=== PATIENT | female | born 1940 | race Caucasian/White ===

== ENCOUNTER → 2017-11-26 | Outpatient (CLI) | payer OTHER, BC | LOC: BHLMT 13:15 | PROVIDERS: ATTEND Internal Medicine Interventional Cardiology | DX: R55 Syncope and collapse (principal); I10 Essential (primary) hypertension | CPT/HCPCS: 93880-PO ==

== ENCOUNTER → 2017-12-01 | Outpatient (CLI) | payer OTHER, BC | LOC: BHLMT 13:30 | PROVIDERS: ATTEND Internal Medicine Cardiovascular Disease | DX: R55 Syncope and collapse (principal); I10 Essential (primary) hypertension; E78.2 Mixed hyperlipidemia | CPT/HCPCS: 93005-PO ==

== ENCOUNTER → 2018-01-21 | Outpatient (CLI) | payer OTHER, BC | LOC: BHLMT 11:30 | PROVIDERS: ATTEND Internal Medicine Interventional Cardiology | DX: R55 Syncope and collapse (principal); I10 Essential (primary) hypertension | CPT/HCPCS: 93017-PO; 93350-PO ==

== ENCOUNTER → 2018-02-03 | Outpatient (CLI) | payer OTHER, BC ==
[~2018-02-03] MED LIST: IOPAMIDOL (ISOVUE-370) 150 ML BTL IV ONE
== END ==
LOC: FIMAGING 09:34
PROVIDERS: ATTEND Internal Medicine Cardiovascular Disease
DX: I25.10 Atherosclerotic heart disease of native coronary artery without angina pectoris (principal)
CPT/HCPCS: 75574; Q9967

== ENCOUNTER → 2018-02-17 | Day surgery (SDC) | payer OTHER, BC ==
[~2018-02-17] MED LIST changes: +ASPIRIN EC 325 MG TAB PO ONE; +ATROPINE SULFATE 1 MG/10 ML SYR IVP PRN; +DIAZEPAM 5 MG TAB PO ONE; +FAMOTIDINE 20 MG TAB PO ONE; +HEPARIN 10,000 UNIT/10 ML MDV (1,000 UNIT/ML) ONE; +HYDROCODONE/APAP 5/325 TAB PO PRN; +LIDOCAINE 1% 300 MG/30 ML SDV ONE; +MIDAZOLAM 2 MG/2 ML VIAL ONE; +NITROGLYCERIN 0.4 MG BTL SL PRN; +NS 1,000 ML IV ONE; +OXYCODONE/APAP 5/325 TAB PO PRN; +VERAPAMIL 5 MG/2 ML VIAL ONE; +diphenhydrAMINE 25 MG CAP PO ONE; +fentaNYL 100 MCG/2 ML INJ ONE
--- NOTE | 2018-02-17 09:55 | CPEKG ---
Heart Rate: 81 RR Interval: 741 P-R Interval: 172 QRSD Interval: 82 QT Interval: 376 QTC Interval: 437 P [place]: 66 QRS [place]: 54 T Wave [place]: 14 EKG Severity - NORMAL ECG - EKG Impression: SINUS RHYTHM Preliminary Awaiting MD Review
[2018-02-17 10:16] LABS: PLATELET COUNT 296 10^3/uL (150-400)
[2018-02-17 10:25] LABS: INR 0.97 (0.83-1.16); PROTIME(PATIENT) 13.1 SEC (12.0-15.0)
--- NOTE | 2018-02-17 10:37 | PDPROPOC ---
Sedation Plan of Care Sedation Plan of Care: vital signs stable, mental status noted, patient educated of risks, benefits, alternatives, patient can tolerate sedation ASA Classification: ASA 1 Planned drugs: fentanyl, midazolam Mallampati Score: Class 1 Mallampati Reference Image: Patient passed 3-3-2 rule?: Yes
--- NOTE | 2018-02-17 10:37 | PDHPUP ---
History & Physical Update H&P update statement: This history and physical update is based on an assessment of the patient which was completed after admission or registration (within 24 hours), but prior to the surgery/procedure. H&P update: H&P reviewed & patient examined, no change in patient's condition since H&P completed
--- NOTE | 2018-02-17 11:53 | PDDXCAT ---
Diagnostic Cath Note - . Date: 02/17/18 Branch Employment Coordinator: Nuha Indication: other (History of syncope. Abnormal stress test. CT coronary angiogram indicating high-grade proximal/mid LAD lesion.) - Procedure Access: right wrist Procedure: left heart catheterization, coronary angiography, left ventriculogram - Materials Left Heart Cath size: 5F Left Heart Cath materials: JL4.0, JR4.0 - Findings-Left Heart Catheterization LM: Large caliber. Bifurcates into the LAD and circumflex. Angiographically free of disease. LAD: Large caliber vessel. Single principal diagonal branch. There is a long, tubular and eccentric lesion appreciated in the mid LAD immediately distal to the 1st diagonal branch. Angiographically this appears to be about 50% diseased. The remainder of the vessel contains luminal irregularities. LCX: Large caliber. Single principal obtuse marginal branch. Luminal irregularities with no obstructive disease. RCA: Large caliber. Dominant. PDA and 2 small posterolaterals are identified. Angiographically free of disease. LVEF: 70%. Normal wall motion. 2+ MR at least partially induced by the pigtail catheter. Complications: None. Estimated blood loss: <50ml Closure method: TR Band Assessment: 1. 50% mid LAD lesion noted immediately after the 1st diagonal branch. 2. Preserved left ventricular systolic function without focal wall motion abnormalities. 3. History of syncope with abnormal stress test. Plan: She will be managed medically with respect to secondary prevention. At this point no intervention is indicated. Intervention: None.
== END | disposition home or self-care (01) ==
LOC: FLAB 09:26
PROVIDERS: ATTEND Internal Medicine Cardiovascular Disease
DX: I25.9 Chronic ischemic heart disease, unspecified (principal); E78.2 Mixed hyperlipidemia; I10 Essential (primary) hypertension; R94.39 Abnormal result of other cardiovascular function study; R55 Syncope and collapse
CPT/HCPCS: C1769; J1644; J2250; J3010; Q9967

== ENCOUNTER → 2019-04-20 | Outpatient (CLI) | payer OTHER | LOC: EMCIMAGING 11:22 | PROVIDERS: ATTEND Internal Medicine Pulmonary Disease | DX: J44.9 Chronic obstructive pulmonary disease, unspecified (principal); G47.33 Obstructive sleep apnea (adult) (pediatric); R91.8 Other nonspecific abnormal finding of lung field; R91.1 Solitary pulmonary nodule; K44.9 Diaphragmatic hernia without obstruction or gangrene | CPT/HCPCS: 71250-PN ==